=== PATIENT | female | born 1970 | race Caucasian/White ===

== ENCOUNTER 2018-07-15 00:51 | Outpatient (CLI) | payer MEDICAID, SELFPAY ==
--- NOTE | 2018-07-15 08:31 | DI.MRI_ITS ---
SYMPTOM/DIAGNOSIS: DEGENERATIVE DISC DISEASE LUMBAR SPINE, CHRONIC LOW BACK PAIN, M54.5, M51.36, RT LEG PAIN LUMBAR SPINE MRI: Routine noncontrast examination was performed. Comparison is made with 03/18/15. At L 5-S 1, there is again seen loss of signal of the disc. Endplate degenerative signal changes are present. There is a moderate sized disc herniation which slightly deviates to the right. There does appear to be extrusion posterior to the S 1 vertebral body and compression upon the right S 1 nerve root. There are degenerative changes of the facets which all contribute to cause mild narrowing of the central spinal canal. There is also mild bilateral neural foraminal encroachment present. At L 4-5, there is disc desiccation. There is a small central disc herniation. There may be mild impingement upon the right L 5 nerve root. Degenerative changes of the facets are seen. These all contribute to cause mild narrowing of the central spinal canal. At L 3-4, there is a diffuse disc bulge. There are degenerative changes of the facets. No focal disc herniation, central spinal canal or neural foraminal stenosis is seen. At L 2-3 and L 1-2, there is no focal disc herniation, central spinal canal or neural foraminal stenosis. Apart from the degenerative endplate signal changes, there is normal marrow signal. The conus medullaris has a normal appearance and location. IMPRESSION: 1. Disc herniation at L 5-S1 slightly deviating to the right with extrusion posterior to the S 1 vertebral body. It does appear to cause mild encroachment upon the right S 1 nerve root. 2. Central disc herniation at L 4-5 which does appear to slightly impinge upon the right L 5 nerve root. 3. Multilevel degenerative changes in the lumbar spine resulting in central spinal canal and neural foraminal stenosis as described above.
== END 2018-07-15 01:11 ==
PROVIDERS: PCP Nurse Practitioner Family; Visit Provider Nurse Practitioner Family
DX: M54.5 Low back pain (principal); M51.36 Other intervertebral disc degeneration, lumbar region; M79.604 Pain in right leg; M51.27 Other intervertebral disc displacement, lumbosacral region; M51.37 Other intervertebral disc degeneration, lumbosacral region; G89.29 Other chronic pain
CPT/HCPCS: 72148

== ENCOUNTER 2018-10-01 08:40 | Outpatient (CLI) | payer MEDICAID, SELFPAY ==
[2018-10-01 08:50] VITALS: PULSE 80; RESP 18; TEMP 37; O2SAT 97
[2018-10-01 09:12] VITALS: BP 157/92; PULSE 76; RESP 17; O2SAT 100
--- NOTE | 2018-10-01 09:22 | PDOC.PAIN ---
Pain Clinic Procedure Note Current Active Problems Problem Status Onset Lumbar radiculitis Acute LUMBoSACRAL TRANSFORAMINAL INJECTION SEKOU BAINS [facility] a transforaminal nerve root block and steroid injection. COMMENTS: I did review her 09/05/18 visit with Ms. Rodriguez here in our clinic. I also reviewed her most recent lumbar spine MRI. Patient was interviewed and the medical record reviewed. There were no medical, pharmacologic, radiographic or other structural contraindications to attempting fluoroscopically guided transforaminal nerve root block and epidural steroid injection. Risks and expected side effects as well as potential benefit of the procedure were reviewed and voiced concerns addressed. The printed consent form was signed and witnessed. Standard time-out procedure was performed. Patient was placed in the prone position on the fluoroscopy table and automated blood pressure cuff and pulse oximeter applied. Fluoroscopy was utilized to identify the Right L5 and Right S1 neural foramen. A skin teo was made for the needle insertion site. A Chlorhexadine prep was carried out, and sterile drapes were applied. Local anesthesia was achieved in the skin and subcutaneous tissues. A 22 gauge 5 spinal needle was then inserted at each level, advanced with fluoroscopic guidance into the neural foramen, confirmed on the lateral view. After negative aspiration, 1 ml of Omnipaque 240 was injected confirming position in A/P and lateral views. This showed a good spread of dye transforaminally into the epidural space. There was no vascular update with contrast injection under continuous fluoroscopy and digital substraction. 7.5 mg of Dexamethasone was injected to each level, followed by 0.5 ml of 1% Xylocaine flush for the nerve root block, as well. There was no unusual discomfort expressed.The needle was withdrawn. The patient tolerated the procedure well. A Band-Aid was applied. Vital signs were stable throughout the procedure and were as recorded in nursing records. If given, dosages of intravenous drugs for anxiolysis and analgesia were documented in nursing records. Follow up plans and appointments were discussed. Post procedure instruction was given as documented in nursing records and patient was discharged in the care of an identified class a truck driver. COMMENTS: Her right leg pain was much improved after the procedure. CC: Brittney Multani
--- NOTE | 2018-10-01 09:25 | DI.RAD_ITS ---
SYMPTOMS/DIAGNOSIS: LUMBAR RADICULOPATHY, TRANSFORAMINAL EPIDURAL STEROID INJECTION C-ARM FLUOROSCOPY: Fluoroscopy Time: 55.6 sec C-arm fluoroscopy was utilized by Dr. Aguilera. Please see Dr. Aguilera's procedure note. Hardcopies show apparent right epidural injection at L 5 - S 1 and S 1 - 2 levels.
[2018-10-01] MEDS: Dexamethasone Sod. Phos./Pres-Free 10 MG/ML VIAL IJ (09:42)
[2018-10-01] MEDS: Omnipaque 240 MG/ML 50 ML BTL IJ (09:43)
[2018-10-01] MEDS: Lidocaine 2% Pres-Free 5 ML VIAL IJ (09:44)
== END 2018-10-01 09:00 ==
PROVIDERS: PCP Nurse Practitioner Family; Visit Provider Preventive Medicine Occupational Medicine
DX: M54.16 Radiculopathy, lumbar region (principal)
CPT/HCPCS: 64483; 64484; 72100; Q9967

== ENCOUNTER 2019-08-25 13:45 | Outpatient (REF) | payer MEDICAID, SELFPAY ==
[2019-08-25 20:40] LABS: Anion Gap 16.6 mmol/L (3-11); BUN 9 mg/dL (7-18); CO2 21.4 mmol/L (21.0-32.0); CREATININE 0.72 mg/dL (0.55-1.02); Calcium 9.3 mg/dL (8.5-10.1); Calculated LDL 127 mg/dL (<100); Chloride 99 mmol/L (98-107); Cholesterol 222 mg/dL (<200); Glucose 180 mg/dL (74-106); HDL Cholesterol 48 mg/dL (40-60); Sodium 137 mmol/L (136-145); TSH (W/Ref FT4) 1.61 uIU/mL (0.36-3.74); Triglyceride 237 mg/dL (<150)
== END 2019-08-25 14:05 ==
LOC: NCHCN 13:45
PROVIDERS: PCP Nurse Practitioner Family; Visit Provider Nurse Practitioner Family
DX: I10 Essential (primary) hypertension (principal); E11.9 Type 2 diabetes mellitus without complications; E78.5 Hyperlipidemia, unspecified; E03.9 Hypothyroidism, unspecified
CPT/HCPCS: 80048; 80061; 84443

== ENCOUNTER 2020-02-13 03:33 | Outpatient (CLI) | payer MEDICAID, SELFPAY ==
--- NOTE | 2020-02-13 | DI.MAMMO_ITS ---
EXAM: MG MAMMO SCREENING CLINICAL HISTORY: SCREENING,Z12.39 TECHNIQUE: Bilateral full field digital CC and MLO mammographic images were obtained with 3D tomosyn thesis and utilizing computer aided detection (CAD). COMPARISON: Available for comparison. FINDINGS: Masses/Architectural Distortion: None seen. Microcalcifications: No suspicious pleomorphic-type are seen. Skin Thickening/Nipple Retraction: None. IMPRESSION: 1. No significant interval change with no specific features of malignancy noted. 2. Unless there is more urgent need, screening mammography is recommended, as per [employer] guidelines. BI-RADS Category 1 - Negative Breast Density - Category B - Scattered areas of fibroglandular density A negative radiographic report should not delay biopsy if a dominant or clinically suspicious mass is present. Up to ten percent of cancers are not identified on mammography. A negative report may reinforce clinical impression. Adenosis and dense breasts may obscure an underlying neoplasm. False positive reports average 6 to 10%. Patient will receive a letter notifying them of these results.
== END 2020-02-13 03:53 ==
PROVIDERS: PCP Nurse Practitioner Family; Visit Provider Nurse Practitioner Family
DX: Z12.31 Encounter for screening mammogram for malignant neoplasm of breast (principal); R92.2 Inconclusive mammogram
CPT/HCPCS: 77063; 77067